=== PATIENT | female | born 1950 | race Hispanic/Latino ===

== ENCOUNTER 2024-10-31 10:28 | Outpatient (CLI) | payer OTHER, MEDICAID | END 2024-10-31 10:29 | disposition home or self-care (01) | LOC: NAV RAD 10:28 | PROVIDERS: ATTEND Nurse Practitioner Family | DX: R19.4 Change in bowel habit (principal); M47.816 Spondylosis without myelopathy or radiculopathy, lumbar region | CPT/HCPCS: 74018 ==